=== PATIENT | female | born 1995 | race Caucasian/White ===

== ENCOUNTER 2019-08-18 09:37 | Emergency (ER) | payer BC ==
[2019-08-18] MEDS ORDERED: NS 0.9% 1000 ML** 1,000 ML IV ONE (09:59)
--- NOTE | 2019-08-18 10:15 | ED ---
Palpitations / Dysrhythmia - HPI Summary HPI Summary: This patient is a 23 year old F presenting to ED with a chief complaint of heart palpitations described as heart racing since one week ago. Patient is currently sick with a cough and sore throat, but she denies fever, nausea, vomiting, and shortness of breath, abdominal pain, burning or pain while urinating. She had chest pain two weeks ago. Patient has been eating and hydrating normally. The palpitations are sometimes worse with exertion but she also gets them while resting. Patient denies a history of DVT, PE. She is on control. She denies problems with her thyroid. She was treated with antibiotics for UTI two weeks ago, which has since resolved. The patient rates the pain 0/10 in severity. Symptoms aggravated by nothing. Symptoms alleviated by nothing. - History of Current Complaint Chief Complaint: EDDysrhythmPalp Time Seen by Provider: 08/18/19 09:58 Hx Obtained From: Patient Onset/Duration: Gradual Onset, Lasting Weeks - One week, Still Present Timing: Intermittent Episodes Lasting: Severity Initially: Mild Severity Currently: None Character: Fast Aggravating: Nothing Alleviating: Nothing Associated Signs & Symptoms: Negative - fever, nausea, vomiting, and shortness of breath, abdominal pain, burning or pain while urinating, Chest Pain - Allergy/Home Medications Allergies/Adverse Reactions: Allergies Allergy/AdvReac Type Severity Reaction Status Date / Time No Known Allergies Allergy Verified 08/18/19 09:47 Home Medications: Home Medications Ethinyl Estradiol/Drospirenone [Mary 28 Tablet (Nf)] 1 tab PO DAILY 08/18/19 [ History Confirmed 08/18/19] PMH/Surg Hx/FS Hx/Imm Hx Endocrine/Hematology History: Denies: Hx Diabetes Cardiovascular History: Denies: Hx Hypercholesterolemia, Hx Hypertension Respiratory History: Denies: Hx Asthma, Hx Chronic Obstructive Pulmonary Disease (COPD) - Surgical History Surgical History: None Surgery Procedure, Year, and Place: Denies Infectious Disease History: No Infectious Disease History: Denies: Traveled Outside the [place] in Last 30 Days - Family History Known Family History: Negative: Cardiac Disease, Hypertension, Diabetes, Respiratory Disease - Social History Occupation: Student Alcohol Use: None Hx Substance Use: No Substance Use Type: Reports: None Hx Tobacco Use: No Smoking Status (MU): Never Smoked Tobacco Review of Systems Negative: Fever Positive: Sore Throat Positive: Palpitations, Chest Pain Positive: Cough. Negative: Shortness Of Breath Negative: Abdominal Pain, Vomiting, Nausea Negative: burning, dysuria All Other Systems Reviewed And Are Negative: Yes Physical Exam - Summary Physical Exam Summary: Constitutional: Well-developed, Well-nourished, Alert. (-) Distressed. Dry cough. Skin: Warm, Dry HENT: Normocephalic; Atraumatic Eyes: Conjunctiva normal Neck: Musculoskeletal ROM normal neck. (-) JVD, (-) Stridor, (-) Tracheal deviation Cardio: Borderline tachycardia; Intact distal pulses; The pedal pulses are 2+ and symmetric. Radial pulses are 2+ and symmetric. (-) Murmur Pulmonary/Chest wall: Effort normal. (-) Respiratory distress, (-) Wheezes, (-) Rales Abd: Soft, (-) tenderness, (-) Distension, (-) Guarding, (-) Rebound Musculoskeletal: (-) Edema Lymph: (-) Cervical adenopathy Neuro: Alert, Oriented x3 Psych: Mood and affect Normal Triage Information Reviewed: Yes Vital Signs On Initial Exam: Initial Vitals Temp Pulse Resp BP Pulse Ox 99.7 F 101 19 146/105 100 08/18/19 09:44 08/18/19 09:44 08/18/19 09:44 08/18/19 09:44 08/18/19 09:44 Vital Signs Reviewed: Yes Procedures - Sedation Patient Received Moderate/Deep Sedation with Procedure: No Diagnostics - Vital Signs Vital Signs Temp Pulse Resp BP Pulse Ox 08/18/19 09:44 99.7 F 101 19 146/105 100 - Laboratory Result Diagrams: 08/18/19 10:02 08/18/19 10:05 Lab Statement: Any lab studies that have been ordered have been reviewed, and results considered in the medical decision making process. - EKG 0940 Cardiac Rate: NL - 89 BPM EKG Rhythm: Sinus Rhythm ST Segment: Normal Ectopy: None Summary of EKG Findings: An EKG at 0940 revealed NSR at 89 BPM, otherwise normal EKG. Dr. Epps has reviewed and interpreted this EKG. Re-Evaluation - Re-Evaluation First Eval Re-Evaluation Time: 12:15 Comment: Patient ambulated around department and her HR javier to 112 BPM. Discussed results with patient. Will check D-dimer. Second Eval Re-Evaluation Time: 13:19 Comment: D-dimer negative. No abnormal cardiac activity noted on monitor. Patient given cardiology referral for further evaluation of reported palpitations. Patient feels well for discharge home. Discussed results with patient. Patient to be discharged w follow-up with cardiology and PCP. Patient understands and agrees. Course/Dx - Course Course Of Treatment: This patient is a 23 year old F presenting to ED with a chief complaint of heart palpitations described as heart racing since one week ago. An EKG at 0940 revealed NSR at 89 BPM, otherwise normal EKG. Blood work obtained without abnormality. Influenza A and B both negative. In the ED course , patient received fluids. After ambulating around the department, patient HR went up to 112 BPM. Added on D-dimer test, which was negative. No abnormal cardiac activity noted on monitor. Patient given cardiology referral for further evaluation of reported palpitations. Patient feels well for discharge home. Discussed results with patient. Patient will be discharged home with dx of URI and palpitations. Patient understands and agrees with this plan. - Diagnoses Provider Diagnoses: URI (upper respiratory infection), Palpitations Discharge ED - Sign-Out/Discharge Documenting (check all that apply): Patient Departure - Discharge - Discharge Plan Condition: Stable Disposition: HOME Patient Education Materials: Heart Palpitations (ED), Upper Respiratory Infection (ED) Referrals: [facility] - MREthel [Primary Care Provider] - 3 Days Claude Nuñez MD [Medical Doctor] - Additional Instructions: Please follow-up with your primary care physician in 2-3 days. PLEASE RETURN TO THE ER FOR WORSENING OR CHANGING SYMPTOMS. It was a pleasure taking care of you today. - Billing Disposition and Condition Condition: STABLE Disposition: Home - Attestation Statements Document Initiated by Scribe: Yes Documenting Scribe: Robert Archer Provider For Whom Kamran is Documenting (Include Credential): Brian Epps DO Scribheather Attestation: Robert Crook scribed for Brian Epps DO on 08/18/19 at 1338. Scribe Documentation Reviewed: Yes Provider Attestation: The documentation as recorded by the Robert salvador accurately reflects the service I personally performed and the decisions made by me, Christopher Scianna, DO Status of Scribe Document: Viewed
[2019-08-18 10:17] LABS: ABS Eosinophils 0.2 10^3/ul (0-0.6); ABS Lymphocytes 1.4 10^3/ul (1.0-4.8); ABS Monocytes 0.6 10^3/ul (0-0.8); ABS Neutrophils 4.6 10^3/ul (1.5-7.7); Eosinophil % 2.6 %; Hematocrit 37 % (35-47); Hemoglobin 12.6 g/dL (12.0-16.0); Lymphocyte % 20.3 %; Mean Corpuscular HGB Conc 34 g/dL (31-36); Mean Corpuscular Hemoglobin 29 pg (27-31); Mean Corpuscular Volume 85 fL (80-97); Mean Platelet Volume 8.8 fL (7.4-10.4); Platelet Count 225 10^3/uL (150-450); Red Blood Count 4.32 10^6 /uL (3.70-4.87); Red Cell Distribution Width 13 % (10-15); White Blood Count 6.8 10^3/uL (3.5-10.8)
[2019-08-18 10:33] LABS: ALT 37 U/L (7-52); AST 24 U/L (13-39); Albumin 4.3 g/dL (3.2-5.2); Albumin/Globulin Ratio 1.3 (1-3); Alkaline Phosphatase 54 U/L (34-104); Anion Gap 7 mmol/L (2-11); Blood Urea Nitrogen 9 mg/dL (6-24); CO2 Carbon Dioxide 23 mmol/L (22-32); Calcium 9.4 mg/dL (8.6-10.3); Chloride 106 mmol/L (101-111); EGFR African American 106.5 (>60); Globulin 3.4 g/dL (2-4); Glucose 91 mg/dL (70-100); Potassium 3.9 mmol/L (3.5-5.0); Sodium 136 mmol/L (135-145); Total Protein 7.7 g/dL (6.4-8.9)
[2019-08-18 10:39] LABS: HCG Pregnancy < 0.60 mIU/mL
[2019-08-18 11:05] LABS: TSH (Thyroid Stimulating Horm) 3.38 mcIU/mL (0.34-5.60)
[2019-08-18 11:48] LABS: Influenza A Molecular NEGATIVE (Negative); Influenza B Molecular NEGATIVE (Negative)
[2019-08-18 13:25] VITALS: BP 115/67
== END 2019-08-18 13:25 | disposition home or self-care (01) ==
LOC: ED 09:37
DX: J06.9 Acute upper respiratory infection, unspecified (principal); R00.2 Palpitations
CPT/HCPCS: 36415; 80053; 83735; 84443; 84484; 84702; 85025; 85379; 93005; 96360; 99282